=== PATIENT | female | born 1980 | race Caucasian/White ===

== ENCOUNTER 2017-10-09 08:58 | Emergency (ER) | payer SELFPAY ==
[~2017-10-09] VITALS: Ht 165.1 cm; Wt 61.8 kg
[~2017-10-09 08:58] MED LIST: ENDOCET 5-3251 EACH PO; FLOMAX0.4 MG PO; KEFLEX500 MG PO; MOTRIN800 MG PO; Motrin PO; NORETHIN-ESTRA1 EAC1 PO; PERCOCET 5/31 TABLET PO; ZOFRAN ODT4 MG PO
[2017-10-09 10:50] VITALS: BP 118/98
== END 2017-10-09 10:52 | disposition home or self-care (01) ==
LOC: EME 08:58
PROVIDERS: Emergency Medicine
DX: J10.1 Influenza due to other identified influenza virus with other respiratory manifestations (principal); Z88.8 Allergy status to other drugs, medicaments and biological substances
CPT/HCPCS: 71046; 87502; 87651 90; 99281; 99284

== ENCOUNTER 2018-01-19 22:40 | Emergency (ER) | payer OTHER ==
[~2018-01-19] VITALS: Ht 165.1 cm; Wt 60.7 kg
[2018-01-19 23:46] VITALS: BP 127/69
== END 2018-01-19 23:47 | disposition home or self-care (01) ==
LOC: EME 22:40
DX: S92.501A Displaced unspecified fracture of right lesser toe(s), initial encounter for closed fracture (principal); S93.114A Dislocation of interphalangeal joint of right lesser toe(s), initial encounter; Y93.72 Activity, wrestling; Z88.8 Allergy status to other drugs, medicaments and biological substances
CPT/HCPCS: 73660; 99281; 99284

== ENCOUNTER 2018-01-21 09:59 | Emergency (ER) | payer OTHER ==
[~2018-01-21] VITALS: Ht 165.1 cm; Wt 61.6 kg
[2018-01-21 12:10] VITALS: BP 140/82
== END 2018-01-21 12:14 | disposition home or self-care (01) ==
LOC: EME 09:59
PROC: 0SSPXZZ Reposition Right Toe Phalangeal Joint, External Approach (ICD-10-PCS; principal; 2018-01-21)
DX: S93.114A Dislocation of interphalangeal joint of right lesser toe(s), initial encounter (principal); G43.909 Migraine, unspecified, not intractable, without status migrainosus; Z87.19 Personal history of other diseases of the digestive system; Z90.721 Acquired absence of ovaries, unilateral; Z88.8 Allergy status to other drugs, medicaments and biological substances
CPT/HCPCS: 73660; 99281; 99284; S0020

== ENCOUNTER 2018-02-27 20:38 | Emergency (ER) | payer OTHER ==
[~2018-02-27] VITALS: Ht 165.1 cm; Wt 64.3 kg
[2018-02-27 21:05] LABS: HEMATOCRIT 38.7 % (36.0-46.0); HEMOGLOBIN 12.8 G/DL (11.9-15.5); MCH 29.7 PG (29.0-34.0); MCHC 33.1 G/DL (30.0-36.0); MCV 89.8 FL (83-99); PLATELET COUNT 253 K/uL (156-360); RBC DIS.WIDTH-CV 12.7 % (11.8-14.6); RBC DIS.WIDTH-SD 42.3 % (39-53); RED BLOOD COUNT 4.31 M/uL (3.80-5.20); WHITE BLOOD COUNT 11.8 K/uL (4.1-10.2)
[2018-02-27 21:19] LABS: ALBUMIN 3.9 g/dL (3.2-4.8); CHLORIDE 109 mEq/L (99-109); POTASSIUM 3.6 mEq/L (3.7-5.4); SODIUM 141 mEq/L (136-147)
[2018-02-27 21:21] LABS: GLUCOSE 110 mg/dL (70-99); TOTAL PROTEIN 6.7 g/dL (6.4-8.3)
[2018-02-27 21:23] LABS: TOTAL BILIRUBIN 0.2 mg/dL (0.0-1.0)
[2018-02-27 21:25] LABS: ALKALINE PHOSPHATASE 56 IU/L (3-129); CREATININE 0.7 mg/dL (0.6-1.3); GFR ESTIMATE (CALCULATED) > 59 mL/min/
[2018-02-27 21:26] LABS: AST (GOT) 14 IU/L (2-34); UREA NITROGEN (BUN) 13 mg/dL (9-23)
[2018-02-27 21:27] LABS: DIRECT BILIRUBIN 0.1 mg/dL (0.0-0.3)
[2018-02-27 21:28] LABS: ALT (GPT) 11 IU/L (3-49); LIPASE 20 U/L (1.0-51.0)
[2018-02-27 21:34] LABS: APPEARANCE CLOUDY ((CLEAR)); BILIRUBIN NEGATIVE; BLOOD MODERATE; COLOR YELLOW ((YELLOW)); GLUCOSE (STRIP) NEGATIVE; KETONES NEGATIVE; LEUKOCYTES LARGE; NITRITE NEGATIVE; PROTEIN (STRIP) 30; SPECIFIC GRAVITY 1.014 (1.000-1.030); UROBILINOGEN 0.2 MG/DL (0.2-1.0)
[2018-02-27 21:58] LABS: EPITHELIAL CELLS 2+ /HPF; MUCUS 1+ /LPF; RED BLOOD CELLS 0-5 /HPF (0-5); WHITE BLOOD CELLS 40-50 /HPF (0-5)
[2018-02-27 21:59] LABS: AMORPHOUS URATES CRYSTALS 1+; BACTERIA 1+ /HPF; HYALINE CASTS 0-5 /LPF
[2018-02-27] MEDS ORDERED: ZOFRAN ODT8 MG PO (22:37)
[2018-02-27] MEDS ORDERED: CEFDINIR300 MG PO (22:37)
[2018-02-27] MEDS ORDERED: NAPROSYN500 MG PO (22:37)
[2018-02-27] MEDS ORDERED: KEFLEX500 MG PO (22:54)
[2018-02-27 23:03] VITALS: BP 110/63
== END 2018-02-27 23:06 | disposition home or self-care (01) ==
LOC: EXP 20:38 → EME 20:38 → EXP 23:06
PROVIDERS: Physician Assistant
DX: N39.0 Urinary tract infection, site not specified (principal); B96.20 Unspecified Escherichia coli [E. coli] as the cause of diseases classified elsewhere; N20.0 Calculus of kidney; G43.909 Migraine, unspecified, not intractable, without status migrainosus; Z88.8 Allergy status to other drugs, medicaments and biological substances
CPT/HCPCS: 74176; 80048; 80076; 81003; 83690; 85027; 87077; 87086; 87186; 99281; 99284